=== PATIENT | female | born 1960 | race Caucasian/White ===

== ENCOUNTER → 2018-01-03 | Outpatient (CLI) | payer OTHER ==
--- NOTE | 2018-01-03 13:40 | RAD ---
Bone densitometry scan, 01/03/2018: History: Screening, ovarian failure The lumbar spine and right hip were examined utilizing a DEXA technique. The bone mineral density in the lumbar spine as measured from the L1-L4 levels is 0.99 g/sq cm yielding a T score of -1.6. This is compatible with osteopenia. The total T score at the right hip is- 0.2. This is in the normal range. IMPRESSION: Osteopenia in the lumbar spine.
== END | disposition home or self-care (01) ==
LOC: DXRAD 11:15
PROVIDERS: ATTEND Physician Assistant Medical
DX: Z13.820 Encounter for screening for osteoporosis (principal); M85.88 Other specified disorders of bone density and structure, other site
CPT/HCPCS: 77080